=== PATIENT | female | born 1960 | race Caucasian/White ===

== ENCOUNTER 2018-09-28 08:05 | Day surgery (SDC) | payer OTHER ==
[~2018-09-28] VITALS: Ht 157.5 cm; Wt 87.4 kg
[2018-09-28 09:23] VITALS: Ht 157.5 cm; Wt 87.4 kg
[2018-09-28] MEDS ORDERED: P MED (09:24)
[2018-09-28] MEDS ORDERED: [UNRECOGNIZED DRUG - OTHER] (09:24)
[2018-09-28] MEDS ORDERED: VITAMINS (09:24)
[2018-09-28] MEDS ORDERED: [UNRECOGNIZED DRUG - OTHER] (09:24)
[2018-09-28] MEDS ORDERED: CHOLESTEROL MED. (09:24)
[2018-09-28] MEDS ORDERED: DM MED (09:24)
--- NOTE | 2018-09-28 09:24 | PREAC ---
Date/Time of Note Date/Time of Note DATE: 09/28/18 TIME: 09:23 Anesthesia Eval and Record Evaluation Time Pre-Procedure Interview DATE: 09/28/18 TIME: 09:23 Age 57 Sex female NPO: 8 hrs Preoperative diagnosis Screening Planned procedure Colonoscopy Past Medical History Past Medical History: Includes Cardio: HTN, Dyslipidemia Endo: Diabetes Surgery & Anesthesia Issues No known issue Meds Anticoagulation: No Beta Salena within 24 hr: No Reason Beta Salena not given: Pt. not on B-Salena Meds reviewed: Yes Allergies Coded Allergies: No Known Drug Allergies (Verified Allergy, Unknown, 09/28/18) Allergies Reviewed: Yes Labs/Studies Labs Reviewed: Reviewed by anesthesiologist test: N/A Studies: ECG (n/a), CXR (n/a) Pre-procedure Exam Airway: Adequate mouth opening, Adequate thyromental dist Mallampati: Mallampati II Teeth: Normal Lung: Normal Heart: Normal ASA Physical Status ASA physical status: 3 Emergency: None Planned Anesthetic General/MAC: MAC Planned Pain Management Parenteral pain med Pre-operative Attestations Prior to commencing anesthesia and surgery, the patient was re-evaluated, there was verification of: *The patient's identity *The results of appropriate recent lab work and preoperative vital signs *The above evaluation not changing prior to induction *Anesthetic plan, risk benefits, alternative and complications discussed with patient/family; questions answered; patient/family understands, accepts and wishes to proceed. AMANDO ROLDAN MD Sep 28, 2018 09:24
[2018-09-28 09:26] VITALS: BP 150/65; PULSE 56; RESP 15
[2018-09-28] MEDS ORDERED: hydrALAzine 20 MG INJ IV PRN (09:30)
[2018-09-28] MEDS ORDERED: ONDANSETRON 4 MG INJ IV PRN (09:30)
[2018-09-28] MEDS ORDERED: EPHEDrine SULFATE 50 MG/5 ML SYG IV PRN (09:30)
[2018-09-28] MEDS ORDERED: FENTAnyl 50 MCG/ML VIAL IV PRN (09:30)
[2018-09-28] MEDS ORDERED: LABETALOL HCL 20MG INJ IV PRN (09:30)
[2018-09-28] MEDS ORDERED: morphine (1 MG/ML) 10ML SYRINGE IV PRN (09:30)
[2018-09-28] MEDS ORDERED: OXYCODONE/ACETAMINOPHEN (5/325) TAB PO PRN (09:30)
[2018-09-28] MEDS ORDERED: PROPOFOL 40 ML ONE (09:50)
--- NOTE | 2018-09-28 09:53 | PAC ---
Date/Time of Note Date/Time of Note DATE: 09/28/18 TIME: 09:53 Post-Anesthesia Notes Post-Anesthesia Note Last documented vital signs T: 98.2 Activity: WNL Respiratory function: WNL Cardiovascular function: WNL Mental status: Baseline Pain reasonably controlled: Yes Hydration appropriate: Yes Nausea/Vomiting absent: Yes AMANDO ROLDAN MD Sep 28, 2018 09:53
[2018-09-28 10:24] VITALS: BP 142/65; PULSE 49; RESP 27
== END 2018-09-28 11:21 | disposition home or self-care (01) ==
LOC: GIL 08:05
PROVIDERS: ATTEND Internal Medicine Gastroenterology
DX: Z12.11 Encounter for screening for malignant neoplasm of colon (principal); K64.8 Other hemorrhoids; K64.4 Residual hemorrhoidal skin tags; I10 Essential (primary) hypertension; E78.5 Hyperlipidemia, unspecified; E11.9 Type 2 diabetes mellitus without complications
CPT/HCPCS: 45378; 82962; Z7610